=== PATIENT | male | born 2000 ===

== ENCOUNTER 2023-02-24 14:07 | Emergency (ER) | payer SELFPAY ==
[~2023-02-24] VITALS: Ht 160 cm; Wt 65.7 kg
[2023-02-24] MEDS ORDERED: IBUPROFEN 600 MG TABLET PO ONE (14:30)
--- NOTE | 2023-02-24 14:31 | ED General ---
General Chief Complaint: Fever-Adult/Adol Stated Complaint: FEVER | HEADACHE Nursing Triage Note: Patient ambulatory to ER room 09 c/o fever since this AM. Patient states he has had a bad headache, lower abdominal pain, and pain when urinating. symptoms started 1 week ago. patient states he has 2 lumps in the right groin area, and 1 in the left groin area. vomited once when symptoms started 1 week ago. Source of Information: Patient Exam Limitations: No Limitations (PRANAV CROWDER) History of Present Illness Date Seen by Provider: Feb 24, 2023 Time Seen by Provider: 14:29 Initial Comments Patient is a 22-year-old male who presents to ED for flulike symptoms. Symptoms started a week ago. Had one episode of vomiting. Bodyaches chills weakness. Reports frequent urination and pain with urination over the past week. Denies any penile discharge, scrotum pain, scrotum swelling. Noted some lymph nodes that were enlarged in his groin. Not currently sexually active. Denies any flank pain. Patient reports subjective fever today. Denies taking any medication. Start developing a headache and lower abdominal pain over the past few days. Pain is described as discomfort without radiation. States pain is fairly constant. Reports some sore throat. Denies cough, runny nose, ear pain, chest pain, shortness of breath, Diarrhea, rash. (PRANAV CROWDER) Allergies and Home Medications Allergies Coded Allergies: No Known Drug Allergies (Unverified , 02/24/23) Patient Home Medication List Home Medication List Reviewed: Yes (PRANAV CROWDER) Doxycycline Monohydrate (Doxycycline Monohydrate) 100 Mg Tablet, 100 MG PO BID Prescribed by: RYAN SALAZAR on 02/24/23 8361 Review of Systems Review of Systems Constitutional: No chills; fever, malaise, weakness EENTM: throat pain; No hearing loss, No ear pain, No blurred vision Respiratory: No cough, No short of breath Cardiovascular: No chest pain Gastrointestinal: abdominal pain; No diarrhea, No nausea; vomiting Genitourinary: No discharge; dysuria, frequency Musculoskeletal: No back pain, No joint pain Skin: No change in color, No change in hair/nails (PRANAV CROWDER) All Other Systems Reviewed Negative Unless Noted: Yes (PRANAV CROWDER) Past Wybbwpl-Rppbhy-Ybawqj Hx Patient Social History Tobacco Use?: No Substance use?: No Alcohol Use?: No (PRANAV CROWDER) Physical Exam Vital Signs Vital Signs - First Documented 02/24/23 14:14 Temp 37.6 Pulse 91 Resp 18 B/P (MAP) 129/83 (98) Pulse Ox 98 O2 Delivery Room Air (LUIS CABRERA MD) Vital Signs Capillary Refill : Less Than 3 Seconds (PRANAV CROWDER) Height, Weight, BMI Height: '" Weight: lbs. oz. kg; 25.00 BMI Method: General Appearance: No Apparent Distress, WD/WN Eyes: Bilateral Eye Normal Inspection, Bilateral Eye PERRL, Bilateral Eye EOMI HEENT: PERRL/EOMI, TMs Normal, Normal ENT Inspection, Pharynx Normal Neck: Full Range of Motion, Normal Inspection, Non Tender, Supple Respiratory: Chest Non Tender, Lungs Clear, Normal Breath Sounds, No Accessory Muscle Use, No Respiratory Distress Cardiovascular: Regular Rate, Rhythm, No Edema, No Gallop, No JVD Gastrointestinal: Normal Bowel Sounds, No Pulsatile Mass, Other (Suprapubic tenderness. 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 Norm as Tested (PRANAV CROWDER) Progress/Results/Core Measures Suspected Sepsis SIRS Temperature: Pulse: 91 Respiratory Rate: 18 Laboratory Tests 02/24/23 15:33: White Blood Count 6.9 Blood Pressure 129 /83 Mean: 98 Laboratory Tests 02/24/23 15:33: Creatinine 0.72, Platelet Count 208, Total Bilirubin 0.4 (PRANAV CROWDER) Results/Orders Lab Results Laboratory Tests Test 02/24/23 14:23 02/24/23 14:39 02/24/23 14:44 02/24/23 15:33 Range/Units Influenza Type A (RT-PCR) Not Detected Not Detecte Influenza Type B (RT-PCR) Not Detected Not Detecte SARS-CoV-2 RNA (RT-PCR) Not Detected Not Detecte Group A Streptococcus Screen Not Detected NotDetected Urine Color YELLOW Urine Clarity CLEAR Urine pH 7.5 5-[address] [place] 1.015 L 1.016-1.022 Urine Protein NEGATIVE NEGATIVE Urine Glucose (UA) NEGATIVE NEGATIVE Urine Ketones NEGATIVE NEGATIVE Urine Nitrite NEGATIVE NEGATIVE Urine Bilirubin NEGATIVE NEGATIVE Urine Urobilinogen 0.2 < = 1.0 MG/DL Urine Leukocyte Esterase NEGATIVE NEGATIVE Urine RBC (Auto) NEGATIVE NEGATIVE Urine RBC NONE /HPF Urine WBC NONE /HPF Urine Squamous Epithelial Cells NONE /HPF Urine Crystals NONE /LPF Urine Bacteria NEGATIVE /HPF Urine Casts NONE /LPF Urine Mucus NEGATIVE /LPF Urine Culture Indicated NO White Blood Count 6.9 4.3-11.0 10^3/uL Red Blood Count 5.77 H 4.30-5.52 10^6/uL Hemoglobin 17.0 13.3-17.7 g/dL Hematocrit 50 40-54 % Mean Corpuscular Volume 86 80-99 fL Mean Corpuscular Hemoglobin 30 25-34 pg Mean Corpuscular Hemoglobin Concent 34 32-36 g/dL Red Cell Distribution Width 12.2 10.0-14.5 % Platelet Count 208 130-400 10^3/uL Mean Platelet Volume 10.0 9.0-12.2 fL Immature Granulocyte % (Auto) 0 % Neutrophils (%) (Auto) 58 42-75 % Lymphocytes (%) (Auto) 26 12-44 % Monocytes (%) (Auto) 12 0-12 % Eosinophils (%) (Auto) 3 0-10 % Basophils (%) (Auto) 1 0-10 % Neutrophils # (Auto) 4.0 1.8-7.8 X 10^3 Lymphocytes # (Auto) 1.8 1.0-4.0 X 10^3 Monocytes # (Auto) 0.8 0.0-1.0 X 10^3 Eosinophils # (Auto) 0.2 0.0-0.3 10^3/uL Basophils # (Auto) 0.0 0.0-0.1 10^3/uL Immature Granulocyte # (Auto) 0.0 0.0-0.1 10^3/uL Sodium Level 138 135-145 MMOL/L Potassium Level 3.8 3.6-5.0 MMOL/L Chloride Level 103 98-107 MMOL/L Carbon Dioxide Level 24 21-32 MMOL/L Anion Gap 11 5-14 MMOL/L Blood Urea Nitrogen 9 7-18 MG/DL Creatinine 0.72 0.60-1.30 MG/DL Estimat Glomerular Filtration Rate 132 BUN/Creatinine Ratio 13 Glucose Level 90 70-105 MG/DL Calcium Level 9.8 8.5-10.1 MG/DL Corrected Calcium 9.6 8.5-10.1 MG/DL Total Bilirubin 0.4 0.1-1.0 MG/DL Aspartate Amino Transf (AST/SGOT) 21 5-34 U/L Alanine Aminotransferase (ALT/SGPT) 27 0-55 U/L Alkaline Phosphatase 79 40-136 U/L Total Protein 8.4 H 6.4-8.2 GM/DL Albumin 4.3 3.2-4.5 GM/DL Lipase 34 8-78 U/L (LUIS CABRERA MD) Vital Signs/I&O 02/24/23 02/24/23 02/24/23 14:14 14:35 16:46 Temp 37.6 37.6 Pulse 91 82 Resp 18 12 B/P (MAP) 129/83 (98) 122/78 Pulse Ox 98 98 O2 Delivery Room Air Room Air (LUIS CABRERA MD) Vital Signs/I&O Capillary Refill : Less Than 3 Seconds (PRANAV CROWDER) Blood Pressure Mean: 98 Departure Communication (PCP) Patient presents to ED with flulike symptoms. Patient reports suprapubic pain with frequent urination but denies of any penile discharge. Initially states he was not sexually active but did mention having sexual intercourse few months ago. Patient noted bilateral inguinal lymphadenopathy. Suprapubic discomfort. He is afebrile. COVID influenza and strep with urinalysis was ordered. Strep A was negative, COVID and influenza negative. Urinalysis without evidence of infection. Chlamydia and gonorrhea swabs ordered and currently pending. Due to unclear etiology did add CBC, CMP which were grossly unremarkable. Did have suprapubic tenderness and very minimal tenderness to the right lower quadrant. No guarding or rebound tenderness. Other etiologies would be appendicitis. He had no testicle swelling or redness. There is no evidence of swelling or redness to the lower extremities or pain on palpation. Neurovascular intact bilateral lower extremities. Good cap refill less than 2. CT scan of the abdomen pelvis was negative for acute abnormality. Bilateral inguinal lymphadenopathy noted. Concerning for a source of infection through the urinary tract. Patient is concerned for STD. He was treated prophylactically with Rocephin and doxycycline. No sexual course for the next 7 days. Recommend follow-up your PCP in 2 to 3 days for reevaluation. Tylenol and ibuprofen for body pains, aches and headache. If any worsening symptoms return back to ED. (PRANAV CROWDER) Impression Primary Impression: Inguinal lymphadenopathy Disposition: HOME, SELF-CARE Condition: Stable Departure-Patient Inst. Decision time for Depature: 16:43 (PRANAV CROWDER) Referrals: NO,LOCAL PHYSICIAN (PCP/Family) Primary Care Physician Patient Instructions: Lymphadenitis (DC) Scripts Doxycycline Monohydrate (Doxycycline Monohydrate) 100 Mg Tablet 100 MG PO BID for 7 Days, #14 TAB Prov: PRANAV CROWDER 02/24/23 Work/School Note: Work Release Form Date Seen in the Emergency Department: Feb 24, 2023 Return to Work: Feb 26, 2023 ATTENDING PHYSICIAN NOTE: I was physically present as attending physician in the emergency department during the care of this patient, but I was not directly involved in the decision making or delivery of care for this patient. (LUIS CABRERA MD) PRANAV CROWDER Feb 24, 2023 14:31 LUIS CABRERA MD Feb 25, 2023 11:35
[2023-02-24 15:22] LABS: CLARITY,URINE CLEAR; COLOR,URINE YELLOW; GLUCOSE, URINE (UA) NEGATIVE (NEGATIVE); PH,URINE 7.5 (5-9); PROTEIN,URINE NEGATIVE (NEGATIVE)
[2023-02-24 15:23] LABS: BACTERIA,URINE NEGATIVE /HPF; BILIRUBIN,URINE NEGATIVE (NEGATIVE); KETONES,URINE NEGATIVE (NEGATIVE); LEUKOCYTE ESTERASE ,URINE NEGATIVE (NEGATIVE); NITRITE,URINE NEGATIVE (NEGATIVE)
[2023-02-24 15:44] LABS: BASOPHILS % (AUTO) 1 % (0-10); EOSINOPHILS # (AUTO) 0.2 10^3/uL (0.0-0.3); EOSINOPHILS % (AUTO) 3 % (0-10); HEMATOCRIT 50 % (40-54); LYMPHOCYTES # (AUTO) 1.8 X 10^3 (1.0-4.0); LYMPHOCYTES % (AUTO) 26 % (12-44); MEAN CORPUSCULAR HEMOGLOBIN 30 pg (25-34); MEAN CORPUSCULAR HGB CONC 34 g/dL (32-36); MEAN CORPUSCULAR VOLUME 86 fL (80-99); MONOCYTES # (AUTO) 0.8 X 10^3 (0.0-1.0); MONOCYTES % (AUTO) 12 % (0-12); NEUTROPHILS % (AUTO) 58 % (42-75); PLATELET COUNT 208 10^3/uL (130-400); WHITE BLOOD COUNT 6.9 10^3/uL (4.3-11.0)
[2023-02-24 15:49] LABS: ALBUMIN 4.3 GM/DL (3.2-4.5); POTASSIUM 3.8 MMOL/L (3.6-5.0)
[2023-02-24 15:51] LABS: CALCIUM 9.8 MG/DL (8.5-10.1)
[2023-02-24 15:52] LABS: TOTAL PROTEIN 8.4 GM/DL (6.4-8.2)
[2023-02-24 15:54] LABS: BILIRUBIN,TOTAL 0.4 MG/DL (0.1-1.0)
[2023-02-24 15:56] LABS: CREATININE SERUM 0.72 MG/DL (0.60-1.30)
[2023-02-24] MEDS ORDERED: NS 100 ML (IVPB) BAG IV ONE (16:00)
[2023-02-24] MEDS ORDERED: IOHEXOL 350 MG/ML 100 ML (OMNIPAQUE 350) VIAL IV ONE (16:00)
--- NOTE | 2023-02-24 16:30 | Diagnostic Imaging Report ---
PROCEDURE: CT abdomen and pelvis with contrast, rule out appendicitis. TECHNIQUE: Multiple contiguous axial images were obtained through the abdomen and pelvis after the administration of intravenous contrast. All CT scans use one or more of the following dose optimizing techniques: automated exposure control, MA and/or KvP adjustment based on patient size and exam type or iterative reconstruction. INDICATION: Fever and abdominal pain with dysuria. FINDINGS: No focal hepatic, gallbladder, pancreatic, adrenal gland or splenic abnormality identified. 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 Unopacified bladder is unremarkable in appearance. Small bilateral inguinal lymph nodes are present without pathologically enlarged adenopathy. There is no evidence of organized fluid collection or focal inflammation. IMPRESSION: No acute abnormality identified. 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 Small bilateral inguinal lymph nodes are likely reactive in nature. Dictated by: Dictated on workstation # [id number]
[2023-02-24] MEDS ORDERED: DOXY100T31 PO (16:44)
[2023-02-24] MEDS ORDERED: cefTRIAXone 500 MG VIAL IV/IM IM ONE (16:45)
[2023-02-24] MEDS ORDERED: LIDOCAINE 1% INJ 20 ML VIAL INJ ONE (16:45)
[2023-02-24 16:46] VITALS: BP 122/78
== END 2023-02-24 16:46 | disposition home or self-care (01) ==
LOC: ER 14:11
DX: R59.0 Localized enlarged lymph nodes (principal); Z20.822 Contact with and (suspected) exposure to COVID-19
CPT/HCPCS: 36415; 74177; 80053; 81000; 83690; 85025; 87430; 87491; 87591; 87636